=== PATIENT | male | born 1985 | race African-American/Black ===

== ENCOUNTER 2018-05-11 11:48 | Emergency (ER) | payer MEDICARE, MEDICAID ==
[~2018-05-11] VITALS: Ht 182.9 cm; Wt 68.0 kg
--- NOTE | 2018-05-11 12:18 | PHYS DOC ---
Adult General Chief Complaint Chief Complaint: ABDOMINAL PAIN HPI HPI Patient is a 32 year old [place] male presents with diffuse lower abdominal pain and multiple episodes of loose stools earlier today. Patient also reports diarrhea. No fever chills, sweats. No flank pain, no reported hematuria dysuria. No prior abdominal surgeries. No other acute symptoms or complaints. [] Review of Systems Review of Systems Review symptoms as per history of present illness. All other review symptoms are negative. All other systems were reviewed and found to be within normal limits, except as documented in this note. Current Medications Current Medications Current Medications Medications (Trade) Dose Ordered Sig/Otis Start Time Stop Time Status Last Admin Dose Admin Fentanyl Citrate (Fentanyl 2ml Vial) 50 mcg 1X ONCE 05/11/18 12:30 05/11/18 12:31 DC 05/11/18 12:39 50 MCG Info (CONTRAST GIVEN -- Rx MONITORING) 1 each PRN DAILY PRN 05/11/18 13:45 05/13/18 13:44 Iohexol (Omnipaque 300 Mg/ml) 75 ml 1X ONCE 05/11/18 13:45 05/11/18 13:46 DC 05/11/18 13:43 75 ML Ondansetron HCl (Zofran) 4 mg 1X ONCE 05/11/18 12:30 05/11/18 12:31 DC 05/11/18 12:39 4 MG Allergies Allergies Allergies Coded Allergies Type Severity Reaction Last Updated Verified No Known Drug Allergies 05/11/18 No Physical Exam Physical Exam Constitutional: Well developed, well nourished, no acute distress, non-toxic appearance. [] HENT: Normocephalic, atraumatic, bilateral external ears normal, oropharynx moist. [] Eyes: PERRLA, EOMI, conjunctiva normal. [] Neck: Normal range of motion, no tenderness. [] Cardiovascular:Heart rate regular rhythm, no murmur. [] Lungs & Thorax: Bilateral breath sounds clear to auscultation. [] Abdomen: Bowel sounds normal, soft, diffuse lower abdominal pain, tenderness, no rebound rigidity or guarding.[] Skin: Warm, dry, no erythema, no rash. [] Back: No tenderness. [] Extremities: No tenderness, no edema. [] Neurologic: Alert and oriented X 3, normal motor function, normal sensory function, no focal deficits noted. [] Psychologic: Affect normal, judgement normal, mood normal. [] Current Patient Data Vital Signs Vital Signs Date Time Temp Pulse Resp B/P (MAP) Pulse Ox O2 Delivery O2 Flow Rate FiO2 05/11/18 14:30 78 16 108/72 (84) 99 Room Air 05/11/18 12:00 97.9 97.9 Lab Values Laboratory Tests Test 05/11/18 12:05 05/11/18 12:30 Urine Collection Type Unknown Urine Color Amrita Urine Clarity Clear Urine pH 5.5 Urine Specific [place] >=1.030 Urine Protein Negative mg/dL (NEG-TRACE) Urine Glucose (UA) Negative mg/dL (NEG) Urine Ketones (Stick) Trace mg/dL (NEG) Urine Blood Negative (NEG) Urine Nitrite Negative (NEG) Urine Bilirubin Small (NEG) Urine Urobilinogen Dipstick 1.0 mg/dL (0.2 mg/dL) Urine Leukocyte Esterase Negative (NEG) Urine RBC 0 /HPF (0-2) Urine WBC 1-4 /HPF (0-4) Urine Bacteria 0 /HPF (0-FEW) Urine Mucus Marked /LPF White Blood Count 5.3 x10^3/uL (4.0-11.0) Red Blood Count 4.88 x10^6/uL (4.30-5.70) Hemoglobin 14.6 g/dL (13.0-17.5) Hematocrit 41.8 % (39.0-53.0) Mean Corpuscular Volume 86 fL (79-100) Mean Corpuscular Hemoglobin 30 pg (25-35) Mean Corpuscular Hemoglobin Concent 35 g/dL (31-37) Red Cell Distribution Width 13.0 % (11.5-14.5) Platelet Count 220 x10^3/uL (140-400) Neutrophils (%) (Auto) 74 % (31-73) H Lymphocytes (%) (Auto) 15 % (24-48) L Monocytes (%) (Auto) 10 % (0-9) H Eosinophils (%) (Auto) 0 % (0-3) Basophils (%) (Auto) 1 % (0-3) Neutrophils # (Auto) 3.9 x10^3uL (1.8-7.7) Lymphocytes # (Auto) 0.8 x10^3/uL (1.0-4.8) L Monocytes # (Auto) 0.5 x10^3/uL (0.0-1.1) Eosinophils # (Auto) 0.0 x10^3/uL (0.0-0.7) Basophils # (Auto) 0.0 x10^3/uL (0.0-0.2) Sodium Level 137 mmol/L (136-145) Potassium Level 3.3 mmol/L (3.5-5.1) L Chloride Level 101 mmol/L (98-107) Carbon Dioxide Level 29 mmol/L (21-32) Anion Gap 7 (6-14) Blood Urea Nitrogen 9 mg/dL (8-26) Creatinine 1.0 mg/dL (0.7-1.3) Estimated GFR (Cockcroft-Gault) 87.2 BUN/Creatinine Ratio 9 (6-20) Glucose Level 101 mg/dL (70-99) H Calcium Level 9.0 mg/dL (8.5-10.1) Total Bilirubin 0.4 mg/dL (0.2-1.0) Aspartate Amino Transferase (AST) 16 U/L (15-37) Alanine Aminotransferase (ALT) 25 U/L (16-63) Alkaline Phosphatase 68 U/L (46-116) Total Protein 7.5 g/dL (6.4-8.2) Albumin 3.5 g/dL (3.4-5.0) Albumin/Globulin Ratio 0.9 (1.0-1.7) L Lipase 98 U/L (73-393) Laboratory Tests 05/11/18 12:30 Laboratory Tests 05/11/18 12:30 EKG EKG [] Radiology/Procedures Radiology/Procedures [CT abdomen/pelvis: No acute findings per radiology report ] Course & Med Decision Making Course & Med Decision Making Pertinent Labs and Imaging studies reviewed. (See chart for details) [CT abdomen pelvis nonacute. Symptoms improved with treatment. Recommend PCP follow-up.] Roxanne Disclaimer Roxanne Disclaimer This electronic medical record was generated, in whole or in part, using a voice recognition dictation system. Departure Departure Impression: Primary Impression: Abdominal pain Additional Impression: Nausea vomiting and diarrhea Disposition: HOME, SELF-CARE Condition: GOOD Patient Instructions: Abdominal Pain Scripts Ondansetron Hcl (ZOFRAN) 4 Mg Tablet 1 TAB PO Q6HRS, #10 TAB 0 Refills Prov: FRANCI DESIR DO 05/11/18 Problem Qualifiers FRANCI DESIR DO May 11, 2018 12:18
[2018-05-11 12:24] LABS: BILIRUBIN,URINE SMALL (NEG); CLARITY,URINE CLEAR; COLOR,URINE AMBER; NITRITE,URINE NEGATIVE (NEG); PH,URINE 5.5; PROTEIN,URINE NEGATIVE (NEG-TRACE)
[2018-05-11] MEDS ORDERED: fentaNYL PF VIAL 100 MCG/2 ML VIAL IV ONE (12:30)
[2018-05-11] MEDS ORDERED: ONDANSETRON PF 4 MG/2 ML VIAL. IV ONE (12:30)
[2018-05-11 12:42] LABS: BASO % 1 % (0-3); EOS % 0 % (0-3); HEMATOCRIT 41.8 % (39.0-53.0); HEMOGLOBIN 14.6 g/dL (13.0-17.5); LYMPH # 0.8 x10^3/uL (1.0-4.8); LYMPH % 15 % (24-48); MEAN CORPUSCULAR HEMOGLOBIN 30 pg (25-35); MEAN CORPUSCULAR HGB CONC 35 g/dL (31-37); MEAN CORPUSCULAR VOLUME 86 fL (79-100); MONO # 0.5 x10^3/uL (0.0-1.1); MONO % 10 % (0-9); NEUT # 3.9 x10^3uL (1.8-7.7); NEUT % 74 % (31-73); PLATELET COUNT 220 x10^3/uL (140-400); RED BLOOD COUNT 4.88 x10^6/uL (4.30-5.70); WHITE BLOOD COUNT 5.3 x10^3/uL (4.0-11.0)
[2018-05-11 12:49] LABS: BACTERIA,URINE 0 /HPF (0-FEW); RBC,URINE 0 /HPF (0-2)
[2018-05-11 12:54] LABS: GFR 87.2; POTASSIUM 3.3 mmol/L (3.5-5.1)
[2018-05-11 13:00] LABS: ALBUMIN 3.5 g/dL (3.4-5.0); ALBUMIN/GLOBULIN RATIO 0.9 (1.0-1.7); TOTAL BILIRUBIN 0.4 mg/dL (0.2-1.0); TOTAL PROTEIN 7.5 g/dL (6.4-8.2)
[2018-05-11] MEDS ORDERED: CONTRAST GIVEN. MC PRN (13:45)
[2018-05-11] MEDS ORDERED: IOHEXOL 300 MG/ML 100ML VIAL. IV ONE (13:45)
--- NOTE | 2018-05-11 14:33 | RAD ---
CT ABD PELV W/ IV CONTRST ONLY Indication: RIGHT LOWER QUADRANT ABD PAIN, OMNI 300 75ML. NO PRIORS Exposure: One or more of the following individualized dose reduction techniques were utilized for this examination: 1. Automated exposure control 2. Adjustment of the mA and/or kV according to patient size 3. Use of iterative reconstruction technique. Comparison: None are available. Contrast: Intravenous contrast was given. No oral contrast per request. FINDINGS: Lower thorax: Small noncalcified nodule right lung base anteriorly measures 4 mm. Liver: Unremarkable Spleen: Unremarkable Pancreas: The pancreas is poorly distinguished from adjacent unopacified bowel loops due to the lack of contrast and lack of much fat. This limits evaluation. Particularly of the body. Adrenals: No evidence of mass. Kidneys: No obvious mass. Urinary tracts: No hydronephrosis. Gallbladder: No calcified stone Lymph nodes: No significant enlargement Vessels: Aorta is nonaneurysmal. GI tract: No evidence of acute colitis. No evidence of bowel obstruction. Appendix is normal. Reproductive organs:No evidence of mass. Urinary bladder: Unremarkable. Peritoneum: No evidence of pneumoperitoneum. No free fluid. Abdominal wall:Unremarkable Spine: Vertebral body height and alignment are intact. Bones: No destructive process identified. External Soft Tissue: No acute findings. IMPRESSION: 1.The appendix is visualized and appears normal. 2. Small noncalcified pulmonary nodule in the right lung base measures 4 mm. As per revised Fleischner guidelines, no follow-up is necessary unless patient is high risk, then consider CT chest in 12 months. 3. Pancreas is poorly defined, particularly the body. This may just be due to the lack of much fat and adjacent unopacified bowel, but correlate clinically for process such as pancreatitis. Electronically signed by: Tai Andrade MD (05/11/2018 2:28 PM) [facility]
[2018-05-11 15:30] VITALS: BP 112/75
[2018-05-11] MEDS ORDERED: ONDA4TAB7 PO (15:30)
== END 2018-05-11 15:41 | disposition home or self-care (01) ==
LOC: ER 11:48
DX: R19.7 Diarrhea, unspecified (principal); R11.2 Nausea with vomiting, unspecified; R10.84 Generalized abdominal pain
CPT/HCPCS: 36415; 74177; 80053; 81001; 83690; 85025; 96374; 96375; 99284; J2405; J3010; Q9967